=== PATIENT | male | born 1980 | race Caucasian/White ===

== ENCOUNTER 2017-03-15 08:17 | Inpatient (IN) ==
[2017-03-15 08:40] LABS: Bilirubin,Urine Negative (Negative); Blood,Urine Trace (Negative); Clarity,Urine Clear (Clear); Color,Urine Yellow (Yellow); Glucose,Urine (UA) Normal (Normal); Ketones,Urine Negative (Negative); Leukocyte Esterase,Urine Negative (Negative); Nitrite,Urine Negative (Negative); PH,Urine 6.5 pH Units (5.0-8.0); Protein,Urine Negative (Neg-Trace); Specific Gravity,Urine 1.018 (1.010-1.025); Urobilinogen,Urine Normal (Normal)
[2017-03-15 08:43] LABS: Amphetamine Screen,Urine Positive ng/mL (Cutoff=1000); Bacteria,Urine None Seen per hpf (None-Few); Barbiturate Screen,Urine Negative ng/mL (Cutoff=200); Benzodiazepines Screen,Urine Negative ng/mL (Cutoff=200); Cannabinoid Screen,Urine Negative ng/mL (Cutoff = 50); Cocaine Screen,Urine Negative ng/mL (Cutoff= 300); Hyaline Casts,Urine None Seen per lpf (None-Few); Opiate Screen,Urine Negative ng/mL (Cutoff=300); Phencyclidine Screen,Urine Negative ng/mL (Cutoff=25); Squamous Epithelial Cell,Urine Moderate per lpf (None-Few); WBC,Urine 0-3 per hpf (0-3)
[2017-03-15 08:44] LABS: Basophils # 0.1 K/mcL (0.0-0.2); Basophils % 0.9 %; Eosinophils # 0.4 K/mcL (0.0-0.6); Eosinophils % 5.7 %; Hematocrit 45.5 % (37.5-50.1); Hemoglobin 14.2 g/dL (12.9-16.9); Immature Granulocytes % 0.2 % (0-4); Lymphocytes # 3.1 K/mcL (0.6-4.6); Lymphocytes % 46.8 %; Mean Corpuscular HGB Conc 31.2 g/dL (31.6-35.5); Mean Corpuscular Volume 83.3 fL (83.0-100.0); Mean Platelet Volume 8.1 fL (9.4-12.4); Monocytes # 0.5 K/mcL (0.0-1.3); Monocytes % 8.1 %; Neutrophils # 2.5 K/mcL (1.6-8.9); Platelet Count 279 K/mcL (140-400); Red Blood Count 5.46 M/mcL (4.19-5.50); Red Cell Distribution Width 14.6 % (11.5-14.5); Segmented Neutrophils % 38.3 %
[2017-03-15 09:00] LABS: Acetaminophen < 1.0 mcg/mL (10-30); Alanine Aminotransferase 17 Units/L (7-52); Albumin 4.3 g/dL (3.5-5.7); Albumin/Globulin Ratio 1.3 (1.1-2.2); Alkaline Phosphatase 106 Units/L (34-104); Aspartate Amino Transferase 12 Units/L (13-39); BUN/Creatinine Ratio 14 (6-26); Bilirubin,Direct 0.1 mg/dL (0.0-0.2); Bilirubin,Indirect 0.4 mg/dL (0.0-1.2); Bilirubin,Total 0.5 mg/dL (0.3-1.0); Blood Urea Nitrogen 10 mg/dL (6-20); Calcium 9.3 mg/dL (8.6-10.3); Carbon Dioxide 28 mEq/L (23-29); Chloride 105 mEq/L (98-107); Ethanol < 10 mg/dL (0-10); Globulin 3.3 g/dL (2.4-3.5); Glucose 96 mg/dL (70-105); Osmolality,Calculated 285 (280-300); Potassium 3.9 mEq/L (3.5-5.1); Salicylate < 5.0 mg/dL (15.0-30.0); Sodium 138 mEq/L (136-145); Total Protein 7.6 g/dL (6.4-8.9); eGFR For African Americans > 60 (> 60); eGFR For Non-African Americans > 60 (> 60)
[2017-03-15 09:14] LABS: Thyroid Stimulating Hormone 1.047 mcIU/mL (0.340-5.600)
--- NOTE | 2017-03-15 09:41 | Emergency Department Note ---
Disposition Clinical Impression: Medical clearance for psychiatric admission, Acute psychosis, Homicidal ideation Disposition: Admitted As Inpatient Condition: Good Psych HPI - General Chief Complaint: ED Psychiatric Symptoms Stated Complaint: Medical Clearance Time Seen by Provider: 03/15/17 08:22 Source: patient, police Mode of arrival: other Limitations: no limitations Nursing Notes Reviewed: Yes Vital Signs Reviewed: Yes - History of Present Illness HPI Narrative: 36-year-old male presents to the ER in police custody with a court order for psychiatric evaluation. Patient currently has no complaints. He denies suicidal or homicidal ideation. He denies anxiety or depression. He denies auditory or visual hallucinations. He voices no complaints at this time including headaches chest pain or shortness of breath. He is not entirely sure why he is here. He denies any alcohol use. He did use cocaine a few days ago. I reviewed the patient's chart and court order. It appears that he was evaluated and noted to have concern for aggressive behavior. He has been cutting himself on his arms and using the blood to paint the lopez. He reports he has been preaching to people that are not there trying to leave them down the right way. Pt complaint: medical clearance request Onset (ago): unknown Context: recent drug abuse Alleged intoxication: No Associated Psychiatric Symptoms: none Associated symptoms: Reports: denies other symptoms Traumatic symptoms: denies traumatic injury Treatments prior to arrival: psychiatric referral Self harm or harm to others: denies thoughts of harming self/others - Related Data Home Medications Medication Instructions Recorded Confirmed No Known Home Drugs 03/15/17 03/15/17 Allergies Allergy/AdvReac Type Severity Reaction Status Date / Time No Known Allergies Allergy Verified 03/15/17 08:25 All systems ED: reviewed and negative except as stated. Cardiovascular: Denies: chest pain Respiratory: Denies: dyspnea Gastrointestinal: Denies: abdominal pain Neurological: Denies: headache Psychiatric: Denies: anxiety, depression, suicidal thoughts, homicidal thoughts , auditory hallucinations, visual hallucinations Past Medical History - Past Medical History Attestation: Yes The following information was validated with the patient. Source: patient Medical history: Reports: no medical history Psychiatric history: Reports: depression, schizophrenia - Social History Smoking Status: Never smoker Smokeless Tobacco Status: No Alcohol use: Reports: none Drug use: Reports: opiates, methamphetamine, IV Drug Use, prescription drug abuse Physical Exam - General Limitations: no limitations General appearance: alert, in no apparent distress - Head Head exam: atraumatic, normocephalic - Eye Eye exam: Present: normal appearance - ENT ENT exam: normal exam - Neck Neck exam: Present: normal inspection, full ROM - Chest Chest inspection: Present: normal inspection, symmetric chest wall rise - Respiratory Respiratory exam: Present: normal lung sounds bilaterally - Cardiovascular Cardiovascular exam: Present: regular rate, normal rhythm, normal heart sounds - Abdominal Exam Abdominal exam: Present: soft, Non-Tender. Absent: tenderness - Extremities Exam Extremities exam: Present: normal inspection, full ROM - Expanded Upper Extremity Exam Shoulder exam: Present: normal inspection, full ROM Arm exam: Present: normal inspection, full ROM Elbow exam: Present: normal inspection, full ROM Forearm/Wrist exam: Present: normal inspection, full ROM, laceration (There are numerous superficial lacerations of varying ages over the bilateral upper extremities.) Hand exam: Present: normal inspection, full ROM Vascular exam: Normal: radial pulse - Expanded Lower Extremity Exam Hip/Pelvis exam: Present: normal inspection, full ROM Upper leg exam: Present: normal inspection, full ROM Knee exam: Present: normal inspection, full ROM Lower leg exam: Present: normal inspection, full ROM Ankle exam: Present: normal inspection, full ROM Foot/toe exam: Present: normal inspection, full ROM - Psychiatric Psychiatric exam: Present: anxious - Expanded Psychiatric Exam Expanded psych exam: Present: loose associations - Skin Skin exam: Present: warm, dry Course Course Narrative: Patient seen and examined. Abrasions over the upper extremities. Patient has order for psychiatric evaluation. We will get labs for psychiatric clearance. - Reevaluation(s) Reevaluation #1: Patient evaluated by the psychiatric team. They initially did not recommend admission. Attending spoke with on-call psychiatrist who now agrees with admission. Patient is accepted to the psychiatric service. Vital Signs Temperature 97.9 F 03/15/17 08:21 Pulse Rate 105 03/15/17 08:21 Respiratory Rate 16 03/15/17 08:21 Blood Pressure 136/90 03/15/17 08:21 O2 Sat by Pulse Oximetry 100 03/15/17 08:21 Temperature 98.2 F 03/15/17 21:00 Pulse Rate 68 03/15/17 21:00 Respiratory Rate 14 03/15/17 21:00 Blood Pressure 111/66 03/15/17 21:00 O2 Sat by Pulse Oximetry 100 03/15/17 08:21 Oxygen Delivery Oxygen Delivery Room Air Psych - MDM Narrative Medical decision making narrative: 36-year-old male presents to the ER from court order for evaluation. From their description he cuts his arms and uses his blood the pain on the lopez. Also reports of him standing over family members when they wake up and family voicing concern for their safety. Patient medically cleared for psychiatric evaluation. He is admitted to the psychiatric service for further evaluation. - Lab Data Lab results reviewed: Yes I reviewed the patient's lab results. Result diagrams: 03/15/17 08:35 03/15/17 08:35 Lab Results 03/15/17 03/15/17 03/15/17 Range/Units 08:30 08:30 08:35 WBC 6.5 (4.3-11.1) K/mcL RBC 5.46 (4.19-5.50) M/mcL Hgb 14.2 (12.9-16.9) g/dL Hct 45.5 (37.5-50.1) % MCV 83.3 (83.0-100.0) fL MCH 26.0 L (28.0-33.3) pg MCHC 31.2 L (31.6-35.5) g/dL RDW 14.6 H (11.5-14.5) % Plt Count 279 (140-400) K/mcL MPV 8.1 L (9.4-12.4) fL Immature Gran % 0.2 (0-4) % Seg Neutrophils % 38.3 % Lymphocytes % 46.8 % Monocytes % 8.1 % Eosinophils % 5.7 % Basophils % 0.9 % Neutrophils # 2.5 (1.6-8.9) K/mcL Lymphocytes # 3.1 (0.6-4.6) K/mcL Monocytes # 0.5 (0.0-1.3) K/mcL Eosinophils # 0.4 (0.0-0.6) K/mcL Basophils # 0.1 (0.0-0.2) K/mcL Sodium (136-145) mEq/L Potassium (3.5-5.1) mEq/L Chloride (98-107) mEq/L Carbon Dioxide (23-29) mEq/L BUN (6-20) mg/dL Creatinine (0.70-1.30) mg/dL Est GFR ( Amer) (> 60) Est GFR (Non-Af Amer) (> 60) BUN/Creatinine Ratio (6-26) Glucose (70-105) mg/dL Calculated Osmolality (280-300) Calcium (8.6-10.3) mg/dL Total Bilirubin (0.3-1.0) mg/dL Direct Bilirubin (0.0-0.2) mg/dL Indirect Bilirubin (0.0-1.2) mg/dL AST (13-39) Units/L ALT (7-52) Units/L Alkaline Phosphatase (34-104) Units/L Serum Total Protein (6.4-8.9) g/dL Albumin (3.5-5.7) g/dL Globulin (2.4-3.5) g/dL Albumin/Globulin Ratio (1.1-2.2) TSH (0.340-5.600) mcIU/mL Urine Color Yellow (Yellow) Urine Clarity Clear (Clear) Urine pH 6.5 (5.0-8.0) pH Units Ur Specific [place] 1.018 (1.010-1.025) Urine Protein Negative (Neg-Trace) mg/dL Urine Glucose (UA) Normal (Normal) mg/dL Urine Ketones Negative (Negative) mg/dL Urine Blood Trace H (Negative) Urine Nitrite Negative (Negative) Urine Bilirubin Negative (Negative) Urine Urobilinogen Normal (Normal) mg/dL Ur Leukocyte Esterase Negative (Negative) Urine Microscopic RBC 5-15 H (0-3) per hpf Urine Microscopic WBC 0-3 (0-3) per hpf Ur Squamous Epith Cells Moderate H (None-Few) per lpf Urine Bacteria None Seen (None-Few) per hpf Hyaline Casts None Seen (None-Few) per lpf Salicylates (15.0-30.0) mg/dL Urine Opiates Screen Negative (Eqdqlx=573) ng/mL Acetaminophen (10-30) mcg/mL Ur Barbiturates Screen Negative (Jdsnvs=026) ng/mL Ur Phencyclidine Scrn Negative (Cutoff=25) ng/mL Ur Amphetamines Screen Positive H (Tthbfs=3078) ng/mL U Benzodiazepines Scrn Negative (Gixycw=222) ng/mL Urine Cocaine Screen Negative (Cutoff= 300) ng/mL U Marijuana (THC) Screen Negative (Cutoff = 50) ng/mL Ethyl Alcohol (0-10) mg/dL 03/15/17 Range/Units 08:35 WBC (4.3-11.1) K/mcL RBC (4.19-5.50) M/mcL Hgb (12.9-16.9) g/dL Hct (37.5-50.1) % MCV (83.0-100.0) fL MCH (28.0-33.3) pg MCHC (31.6-35.5) g/dL RDW (11.5-14.5) % Plt Count (140-400) K/mcL MPV (9.4-12.4) fL Immature Gran % (0-4) % Seg Neutrophils % % Lymphocytes % % Monocytes % % Eosinophils % % Basophils % % Neutrophils # (1.6-8.9) K/mcL Lymphocytes # (0.6-4.6) K/mcL Monocytes # (0.0-1.3) K/mcL Eosinophils # (0.0-0.6) K/mcL Basophils # (0.0-0.2) K/mcL Sodium 138 (136-145) mEq/L Potassium 3.9 (3.5-5.1) mEq/L Chloride 105 (98-107) mEq/L Carbon Dioxide 28 (23-29) mEq/L BUN 10 (6-20) mg/dL Creatinine 0.69 L (0.70-1.30) mg/dL Est GFR ( Amer) > 60 (> 60) Est GFR (Non-Af Amer) > 60 (> 60) BUN/Creatinine Ratio 14 (6-26) Glucose 96 (70-105) mg/dL Calculated Osmolality 285 (280-300) Calcium 9.3 (8.6-10.3) mg/dL Total Bilirubin 0.5 (0.3-1.0) mg/dL Direct Bilirubin 0.1 (0.0-0.2) mg/dL Indirect Bilirubin 0.4 (0.0-1.2) mg/dL AST 12 L (13-39) Units/L ALT 17 (7-52) Units/L Alkaline Phosphatase 106 H (34-104) Units/L Serum Total Protein 7.6 (6.4-8.9) g/dL Albumin 4.3 (3.5-5.7) g/dL Globulin 3.3 (2.4-3.5) g/dL Albumin/Globulin Ratio 1.3 (1.1-2.2) TSH 1.047 (0.340-5.600) mcIU/mL Urine Color (Yellow) Urine Clarity (Clear) Urine pH (5.0-8.0) pH Units Ur Specific [place] (1.010-1.025) Urine Protein (Neg-Trace) mg/dL Urine Glucose (UA) (Normal) mg/dL Urine Ketones (Negative) mg/dL Urine Blood (Negative) Urine Nitrite (Negative) Urine Bilirubin (Negative) Urine Urobilinogen (Normal) mg/dL Ur Leukocyte Esterase (Negative) Urine Microscopic RBC (0-3) per hpf Urine Microscopic WBC (0-3) per hpf Ur Squamous Epith Cells (None-Few) per lpf Urine Bacteria (None-Few) per hpf Hyaline Casts (None-Few) per lpf Salicylates < 5.0 L (15.0-30.0) mg/dL Urine Opiates Screen (Fdufvb=690) ng/mL Acetaminophen < 1.0 L (10-30) mcg/mL Ur Barbiturates Screen (Tqpltl=437) ng/mL Ur Phencyclidine Scrn (Cutoff=25) ng/mL Ur Amphetamines Screen (Zphpmf=5252) ng/mL U Benzodiazepines Scrn (Vodyls=907) ng/mL Urine Cocaine Screen (Cutoff= 300) ng/mL U Marijuana (THC) Screen (Cutoff = 50) ng/mL Ethyl Alcohol < 10 (0-10) mg/dL Psychiatric Medical Clearance - Medical Clearance Checklist Medical History: Medical clearance for psychiatric admission (Acute) Acute psychosis (Acute) Homicidal ideation (Acute) Acute lumbar back pain (Inactive) Bilateral swelling of feet (Inactive) Chronic schizophrenia (Inactive) Drug overdose (Inactive) Drug-induced psychotic disorder (Inactive) Pre-hypertension (Inactive) Urethritis (Inactive) No Social History Section defined Current Vitals: Last Vital Signs Temp 98.2 F 03/15/17 21:00 Pulse 68 03/15/17 21:00 Resp 14 03/15/17 21:00 BP 111/66 03/15/17 21:00 Pulse Ox 100 03/15/17 08:21 Psychiatric Lab Panel: Drug Levels and Toxicity 03/15/17 03/15/17 08:30 08:35 Urine Opiates Screen Negative Acetaminophen < 1.0 L Ur Barbiturates Screen Negative Ur Phencyclidine Scrn Negative Ur Amphetamines Screen Positive H U Benzodiazepines Scrn Negative Urine Cocaine Screen Negative U Marijuana (THC) Screen Negative Ethyl Alcohol < 10 Abnormal Labs: Abnormal lab results MCH 26.0 pg (28.0-33.3) L 03/15/17 08:35 MCHC 31.2 g/dL (31.6-35.5) L 03/15/17 08:35 RDW 14.6 % (11.5-14.5) H 03/15/17 08:35 MPV 8.1 fL (9.4-12.4) L 03/15/17 08:35 Creatinine 0.69 mg/dL (0.70-1.30) L 03/15/17 08:35 AST 12 Units/L (13-39) L 03/15/17 08:35 Alkaline Phosphatase 106 Units/L (34-104) H 03/15/17 08:35 Urine Blood Trace (Negative) H 03/15/17 08:30 Urine Microscopic RBC 5-15 per hpf (0-3) H 03/15/17 08:30 Ur Squamous Epith Cells Moderate per lpf (None-Few) H 03/15/17 08:30 Salicylates < 5.0 mg/dL (15.0-30.0) L 03/15/17 08:35 Acetaminophen < 1.0 mcg/mL (10-30) L 03/15/17 08:35 Ur Amphetamines Screen Positive ng/mL (Etjxdb=5965) H 03/15/17 08:30 Statement of Medical Clearance: I have evaluated the patient, reviewed diagnostic information, and certify that the patient's medical condition is sufficiently stable that transfer to the psychiatric unit does not pose a significant risk of deterioration. Attestation Statement - Attestation Attestation: I examined this patient and my medical decision-making was reviewed with the Resident Physician, Dr. Mckinley. I agree with the documented findings, disposition and treatment plan as described except to the extent set forth below. Patient is a 36-year-old white male who sent us with a court order for medical clearance for further psychiatric evaluation. Patient currently brought for evaluation and it was reported that he is cutting himself numerous times on his arms and taking the blood and paint the lopez. Patient was also found preaching to people who are not present in his room. I agree with patient's physical exam findings as documented. Vital signs are stable he is not agitated or in any distress. Patient denies any complaints Lab evaluation was obtained as well as alcohol and drug levels. Patient does have positive methamphetamine in the system. Patient has been medically cleared for further psychiatric evaluation pending one a consult. Spoke with the psychiatrist personally, Dr. Rizvi regarding patient's court- ordered affidavit and comments of homicidal and suicidal ideation. Patient will be admitted for further evaluation.
[2017-03-15] MEDS ORDERED: Haloperidol Lactate 5 MG/ML VIAL IM ONE (14:58)
[2017-03-15] MEDS ORDERED: hydrOXYzine pamoate 25 MG CAPSULE PO PRN (17:48)
[2017-03-15] MEDS ORDERED: *HR* LORazepam 2 MG/ML VIAL IM PRN (17:48)
[2017-03-15] MEDS ORDERED: Haloperidol Lactate 5 MG/ML VIAL IM PRN (17:48)
[2017-03-15] MEDS ORDERED: Mag Hydrox/Al Hydrox/Simeth 30 ML UDC PO PRN (17:48)
[2017-03-15] MEDS ORDERED: Acetaminophen 325 MG TABLET PO PRN (17:48)
[2017-03-15] MEDS ORDERED: *HR* LORazepam 1 MG TABLET PO PRN (17:48)
[2017-03-15] MEDS ORDERED: MOM Conc 10 ML UD.LIQ PO PRN (17:48)
--- NOTE | 2017-03-16 15:03 | Psychiatry History & Physical ---
Date of Encounter: 03/16/17 Time of Encounter: 14:45 History of Present Illness Patient Stated Chief Complaint: "I have no idea why I'm here. I was told it was for medical testing" Medicare Admission Attestation: For traditional Medicare patients the provided hospital inpatient services are reasonable and necessary and in the case of services not specified as inpatient -only under 42 CFR 419.22 (n), that they are appropriately provided as inpatient services in accordance 42 CFR 412.3. For Critical Access Hospital the patient may reasonably be expected to be discharged or transferred to a hospital within 96 hours after admission to the Critical Access Hospital. Admitted From: Emergency Dept Plans for Post Hospital Care: Home History of Present Illness: Mr. Adan is a 36 year old male who tells me he has no idea why he is at the hospital. I explained to them the situation of why he was here. He was unwilling to come out of his room to talk to me. He stated that I could talk to him right there. He was laying in bed with the blankets pulled over him and did not want to leave the room. He denies threatening anybody. He told me what he said to his family was "you guys keep doing things that you do, that is what makes people flip out and kill people". He does not see or understand that that could be seen and interrupted as s a threat. I asked him about the reports of him being treated for mental health issues when he was in [place]. He stated "a bunch of shit happened in [place] where I was further expanding my mind. When I came home, my family didn't agree with it". He denies any auditory or visual hallucinations. He told me that he slept fine last night. I tried to get further information from him and he was not willing to talk to me. He just asks if he can leave. I explained to him again that he was on a 72 hour hold. That he needed to be monitored and we needed to gather information from him as well as get collateral information from others to help him. He denies that he is a danger to himself or anybody else. He denies signs and symptoms of psychosis or any mental health issues. (See ED Emergent Psychiatric Evaluation for further details. 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 He denies having it. ) Family psychiatric history: Unknown Family History of Suicide: Unknown - Social History Smoking Status: Never smoker Smokeless Tobacco Status: No Alcohol use: none Drug use: opiates, methamphetamine, IV Drug Use, prescription drug abuse Occupational status: unemployed Current living situation: Home, With Family Activity Level: Independent ambulation Recent Out of Country Travel Within the Last 8 Weeks: No Exposure or Possible Exposure to Illness During Travel: No Medications & Allergies No Known Home Drugs 03/15/17 [History] 3 Allergy/AdvReac Type Severity Reaction Status Date / Time No Known Allergies Allergy Verified 03/15/17 08:25 Mental Status Exam Patient orientation: Yes Person, Yes Place, Yes Circumstance (Does not understand the circumstances) Level of alertness: Sedated Patient appearance: Disheveled Additional observations: He will not come out of his room to talk Behavior: anxious, restless, uncooperative, guarded, distractible Psychomotor activity: Agitated Eye contact: Fleeting Contact Mood description: Anxious Affect description: congruent with mood Speech pattern: Normal rate, Normal rhythm, Normal tone Speech volume: Normal Thought process: Circumstantial, Evasive, [place] Thought content: Yes Homicidal ideation (denies), Yes Paranoid delusion ( regarding that his family is out to get him; not trying to help him.) Attention span: Capable of Focused Attention, Unable to Sustain Attention ( struggles) Memory description: Grossly Intact Patient reliability: Not Reliable Historian Intelligence estimate: Average Judgment: Poor Insight: Minimal Exam - HEENT Head exam IM: Present: atraumatic Results - Vital Signs Vital signs: Temp Pulse Resp BP Pulse Ox 98.2 F 94 16 107/74 100 03/16/17 09:00 03/16/17 09:00 03/16/17 09:00 03/16/17 09:00 03/15/17 08:21 - Labs Labs: Laboratory Last Values WBC 6.5 K/mcL (4.3-11.1) 03/15/17 08:35 RBC 5.46 M/mcL (4.19-5.50) 03/15/17 08:35 Hgb 14.2 g/dL (12.9-16.9) 03/15/17 08:35 Hct 45.5 % (37.5-50.1) 03/15/17 08:35 MCV 83.3 fL (83.0-100.0) 03/15/17 08:35 MCH 26.0 pg (28.0-33.3) L 03/15/17 08:35 MCHC 31.2 g/dL (31.6-35.5) L 03/15/17 08:35 RDW 14.6 % (11.5-14.5) H 03/15/17 08:35 Plt Count 279 K/mcL (140-400) 03/15/17 08:35 MPV 8.1 fL (9.4-12.4) L 03/15/17 08:35 Immature Gran % 0.2 % (0-4) 03/15/17 08:35 Seg Neutrophils % 38.3 % 03/15/17 08:35 Lymphocytes % 46.8 % 03/15/17 08:35 Monocytes % 8.1 % 03/15/17 08:35 Eosinophils % 5.7 % 03/15/17 08:35 Basophils % 0.9 % 03/15/17 08:35 Neutrophils # 2.5 K/mcL (1.6-8.9) 03/15/17 08:35 Lymphocytes # 3.1 K/mcL (0.6-4.6) 03/15/17 08:35 Monocytes # 0.5 K/mcL (0.0-1.3) 03/15/17 08:35 Eosinophils # 0.4 K/mcL (0.0-0.6) 03/15/17 08:35 Basophils # 0.1 K/mcL (0.0-0.2) 03/15/17 08:35 Sodium 138 mEq/L (136-145) 03/15/17 08:35 Potassium 3.9 mEq/L (3.5-5.1) 03/15/17 08:35 Chloride 105 mEq/L (98-107) 03/15/17 08:35 Carbon Dioxide 28 mEq/L (23-29) 03/15/17 08:35 BUN 10 mg/dL (6-20) 03/15/17 08:35 Creatinine 0.69 mg/dL (0.70-1.30) L 02/08/18 08:35 Est GFR ( Amer) > 60 (> 60) 03/15/17 08:35 Est GFR (Non-Af Amer) > 60 (> 60) 03/15/17 08:35 BUN/Creatinine Ratio 14 (6-26) 03/15/17 08:35 Glucose 96 mg/dL (70-105) 03/15/17 08:35 Calculated Osmolality 285 (280-300) 03/15/17 08:35 Calcium 9.3 mg/dL (8.6-10.3) 03/15/17 08:35 Total Bilirubin 0.5 mg/dL (0.3-1.0) 03/15/17 08:35 Direct Bilirubin 0.1 mg/dL (0.0-0.2) 03/15/17 08:35 Indirect Bilirubin 0.4 mg/dL (0.0-1.2) 03/15/17 08:35 AST 12 Units/L (13-39) L 03/15/17 08:35 ALT 17 Units/L (7-52) 03/15/17 08:35 Alkaline Phosphatase 106 Units/L (34-104) H 03/15/17 08:35 Serum Total Protein 7.6 g/dL (6.4-8.9) 03/15/17 08:35 Albumin 4.3 g/dL (3.5-5.7) 03/15/17 08:35 Globulin 3.3 g/dL (2.4-3.5) 03/15/17 08:35 Albumin/Globulin Ratio 1.3 (1.1-2.2) 03/15/17 08:35 TSH 1.047 mcIU/mL (0.340-5.600) 03/15/17 08:35 Urine Color Yellow (Yellow) 03/15/17 08:30 Urine Clarity Clear (Clear) 03/15/17 08:30 Urine pH 6.5 pH Units (5.0-8.0) 03/15/17 08:30 Ur Specific [place] 1.018 (1.010-1.025) 03/15/17 08:30 Urine Protein Negative mg/dL (Neg-Trace) 03/15/17 08:30 Urine Glucose (UA) Normal mg/dL (Normal) 03/15/17 08:30 Urine Ketones Negative mg/dL (Negative) 03/15/17 08:30 Urine Blood Trace (Negative) H 03/15/17 08:30 Urine Nitrite Negative (Negative) 03/15/17 08:30 Urine Bilirubin Negative (Negative) 03/15/17 08:30 Urine Urobilinogen Normal mg/dL (Normal) 03/15/17 08:30 Ur Leukocyte Esterase Negative (Negative) 03/15/17 08:30 Urine Microscopic RBC 5-15 per hpf (0-3) H 03/15/17 08:30 Urine Microscopic WBC 0-3 per hpf (0-3) 03/15/17 08:30 Ur Squamous Epith Cells Moderate per lpf (None-Few) H 03/15/17 08:30 Urine Bacteria None Seen per hpf (None-Few) 03/15/17 08:30 Hyaline Casts None Seen per lpf (None-Few) 03/15/17 08:30 Salicylates < 5.0 mg/dL (15.0-30.0) L 03/15/17 08:35 Urine Opiates Screen Negative ng/mL (Cvbwgf=922) 03/15/17 08:30 Acetaminophen < 1.0 mcg/mL (10-30) L 03/15/17 08:35 Ur Barbiturates Screen Negative ng/mL (Wtjjyy=998) 03/15/17 08:30 Ur Phencyclidine Scrn Negative ng/mL (Cutoff=25) 03/15/17 08:30 Ur Amphetamines Screen Positive ng/mL (Zmwsvo=3222) H 03/15/17 08:30 U Benzodiazepines Scrn Negative ng/mL (Gdsbvm=921) 03/15/17 08:30 Urine Cocaine Screen Negative ng/mL (Cutoff= 300) 03/15/17 08:30 U Marijuana (THC) Screen Negative ng/mL (Cutoff = 50) 03/15/17 08:30 Ethyl Alcohol < 10 mg/dL (0-10) 03/15/17 08:35 - Impressions Patient is uncooperative and denies any mental health issues. He does not want to talk me. He acknowledges using meth and other drugs. It is questionable whether the mood and thought issues may be drug-related, as he is positive for methamphetamine, or if he has a true underlying schizophrenia/psychosis which he has been diagnosed with previously. He has made cold threats against his family that they called the police, afraid that he was a danger to them. He is unwilling to take medications or seek treatment for mental health or substance abuse issues. He believes that he is at the hospital for lab "testing" which he thinks is a paternity testing. He does not understand nor agree that he is here on a 72 hour hold for monitoring and evaluation of mental health issues and DTO. Further evaluation and monitoring is needed as well as contact and interview with the family that he made the perceived threats toward. Assessment and Plan (1) Psychosis Current visit: Yes Status: Acute Plan: Admit inpatient for safety and stabilization, Close observation, Suicide Precautions per unit protocol, Group Therapy, Monitor sleep Risks, benefits, side effects, alternatives discussed w/pt: Yes Patient agreeable to treatment : No (72 hour hold) Plans for Post Hospital Care: Home Estimated Length of Stay (Days): 5
--- NOTE | 2017-03-17 12:40 | Psychiatry Progress Note ---
Date of Encounter: 03/17/17 Time of Encounter: 12:00 Subjective Interval history: I went to talk to the patient while he was out eating lunch. I asked him if he would come down to my office to talk after he finished eating. He was agreeable. He came to my office and I asked him how he was. He stated "I am alright. I am just frustrated to still be here". When I tried to talk to him about the situation and to gather more information, he told me "people mistake me and what I think. I am just misunderstood" He talks further about " Facebook posts are just that, posts". I explained to him that there was concern over the statement made and reiterated the statement about his family ' not waking up'. He states that "my mom and them do not understand me. They just want me in here to get welfare to get them money". He states that he lives with his family spends most of his time in the room. He does not have a job. He states he would like to get one but can't because he does not have a car. When I asked him about his mental health, he denies auditory/visual hallucinations, telepathy and mind reading. He denies paranoia that the [facility], [facility] or any government agencies are out to get him. "Just my family" I talked to him about his drug use. He says he uses meth every couple days and then "I balance it out with something else". When asked what he is talking about, he tells me, that he will use heroin to bring himself down. He brings up the fact again about getting the lab testing for the paternity. I explained to him that that is not why he was here. He stated "this (paternity testing/lab ?) has been going on for a couple months". I explained to him again that he is here in a 72 hour hold for potential threat to others. He said "I am not talking to you anymore" and he got up and walked out of the room. Objective: Exam Patient orientation: Yes Person, Yes Place Level of alertness: Alert Patient appearance: Unkempt Behavior: uncooperative, guarded Psychomotor activity: Normal Eye contact: Fleeting Contact Mood description: Anxious Affect description: congruent with mood Speech pattern: Normal rate, Normal rhythm, Normal tone Speech volume: Normal Thought process: Circumstantial, Evasive Thought content: Yes Suicidal ideation (denies), Yes Homicidal ideation (denies) , Yes Paranoid delusion Judgment: Poor Insight: Minimal Results - Vital Signs Vital Signs: Temp Pulse Resp BP Pulse Ox 98 F 85 16 115/77 100 03/17/17 09:00 03/17/17 09:00 03/17/17 09:00 03/17/17 09:00 03/15/17 08:21 Assessment and Plan (1) Psychosis Current visit: Yes Status: Acute Plan: Continue hospitalization, Close observation, Suicide Precautions per unit protocol, Encourage participation in unit milieu, Group Therapy, Monitor sleep Additional Plan: commissary worker to contact family for interview to gather further information and discuss threat and placement/housing issues Risks, benefits, side effects, alternatives discussed w/pt: Yes Patient agreeable to treatment: No (72 hour hold) Consult Discharge Plan - Plan Referrals: NONE,PCP [Primary Care Provider] -
[2017-03-17] MEDS: traZODone 50 MG TABLET PO PRN (20:22)
--- NOTE | 2017-03-18 13:30 | Psychiatry Progress Note ---
Date of Encounter: 03/18/17 Time of Encounter: 10:20 Subjective Interval history: Patient seen this morning and discussed during rounds and multidiscplinary treatment team. He was calm , cooperative and well related. There were no reported incident overnight. He remained slightly disorganized and delusional. He mentioned he was brought to the hospital to have blood work done to see if he is the father of a girl got . He mentioned everything was fine with the blood work but his family wanted him evaluated to make sure "Im OK'. Patient 's insight remains poor and does not believe he needs medications hence his continuous refusal to take medications. There were no reported incident or behavioral issues over night. Patient remains delusional and disorganized with poor insight and limited impulse control. He remains a risk to self and others hence will continue to benefit from inpatient stabilization. He will need to be probated for medication over objection if he continues to refuse medications. m. Objective: Exam Patient orientation: Yes Person, Yes Time, Yes Place Level of alertness: Alert Patient appearance: Appropriate, Well Groomed Behavior: calm, cooperative Psychomotor activity: Normal Eye contact: Maintains Eye Contact Mood description: Anxious Affect description: congruent with mood, full range Speech pattern: Normal rate, Normal rhythm, Normal tone Speech volume: Normal Thought process: Linear, Goal Oriented Thought content: No Suicidal ideation, No Homicidal ideation, No Overt delusions , Yes Paranoid delusion, Yes Adventist delusion Perceptual disturbances: No Auditory hallucinations, No Visual hallucinations Judgment: Poor Insight: None Results - Vital Signs Vital Signs: Temp Pulse Resp BP Pulse Ox 98.4 F 81 18 125/78 100 03/18/17 08:37 03/18/17 08:37 03/18/17 08:37 03/18/17 08:37 03/15/17 08:21 Consult Discharge Plan - Plan Referrals: NONE,PCP [Primary Care Provider] -
[2017-03-18] MEDS: traZODone 50 MG TABLET PO PRN (21:25)
--- NOTE | 2017-03-19 15:00 | Psychiatry Progress Note ---
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 He reports that he would like to communicate better with his mother. The patient says he is awake and he is an awaken sikh and that he is also in the medications when told that some of these things were improbable he said no and says there was a big misunderstanding. The patient has been cautioned not to cut his arms not to use methamphetamine not to use heroin. Review of Systems Constitutional: Denies: fever, chills, weakness, weight change Gastrointestinal: Denies: abdominal pain, nausea, vomiting, diarrhea, constipation Musculoskeletal: Denies: joint swelling, joint pain Neurological: Denies: headache, weakness, numbness, memory loss Results - Vital Signs Vital Signs: Temp Pulse Resp BP Pulse Ox 99.8 F H 103 16 129/86 100 03/19/17 10:48 03/19/17 10:48 03/19/17 10:48 03/19/17 10:48 03/15/17 08:21 - Drug Levels and Toxicology Drug Levels and Toxicology: methamphetamine Assessment and Plan (1) Psychosis Current visit: Yes Status: Acute Plan: Continue hospitalization, Close observation, Encourage participation in unit milieu Risks, benefits, side effects, alternatives discussed w/pt: Yes Patient agreeable to treatment: No (72 hour hold) Qualifiers: Qualified Code(s): F29 - Unspecified psychosis not due to a substance or known physiological condition (2) Other stimulant abuse with stimulant-induced mood disorder Current visit: Yes Status: Acute Plan: Close observation, Monitor sleep Risks, benefits, side effects, alternatives discussed w/pt: Yes Patient agreeable to treatment: Yes (3) Court decision Current visit: Yes Status: Suspected Plan: Close observation Additional Plan: Patient has been on court order to evaluate for dangerousness. On is not dangerous to others there has been some concern he might try to cut himself. Loose disorganized in conversation Risks, benefits, side effects, alternatives discussed w/pt: Yes Patient agreeable to treatment: Yes Consult Discharge Plan - Plan Referrals: NONE,PCP [Primary Care Provider] -
[2017-03-19] MEDS: OLANZapine 5 MG TAB.RAPDIS PO SCH (18:08)
[2017-03-19] MEDS: traZODone 50 MG TABLET PO PRN (20:55)
--- NOTE | 2017-03-20 12:40 | Psychiatry Progress Note ---
Date of Encounter: 03/20/17 Time of Encounter: 12:30 Subjective Interval history: The patient has been placed on involuntary hold. He has been told that there was would a court hearing to determine his need to remain in the hospital. Objective: Exam Patient orientation: Yes Person, Yes Time, Yes Place Level of alertness: Alert Patient appearance: Appropriate Behavior: nervous Psychomotor activity: Slowed Eye contact: Maintains Eye Contact Mood description: Euthymic/stable Affect description: congruent with mood Speech pattern: Normal rate Speech volume: Normal Thought process: Loose Associations Thought content: Yes Ideas of reference, Yes Judaism delusion Perceptual disturbances: Yes Reacting to internal stimuli Judgment: Limited Insight: Minimal Results - Vital Signs Vital Signs: Temp Pulse Resp BP Pulse Ox 98.5 F 77 18 110/66 100 03/20/17 09:00 03/20/17 09:00 03/20/17 09:00 03/20/17 09:00 03/15/17 08:21 Assessment and Plan (1) Psychosis Current visit: Yes Status: Acute Plan: Continue hospitalization, Close observation, Suicide Precautions per unit protocol Risks, benefits, side effects, alternatives discussed w/pt: Yes Patient agreeable to treatment: No (72 hour hold) Qualifiers: Psychosis type: unspecified psychosis type Qualified Code(s): F29 - Unspecified psychosis not due to a substance or known physiological condition (2) Other stimulant abuse with stimulant-induced mood disorder Current visit: Yes Status: Acute Plan: Continue hospitalization, Close observation, Monitor sleep Risks, benefits, side effects, alternatives discussed w/pt: Yes Patient agreeable to treatment: Yes (3) Court decision Current visit: Yes Status: Suspected Plan: Continue hospitalization, Close observation Risks, benefits, side effects, alternatives discussed w/pt: Yes Patient agreeable to treatment: Yes Consult Discharge Plan - Plan Referrals: NONE,PCP [Primary Care Provider] -
[2017-03-20] MEDS: OLANZapine 5 MG TAB.RAPDIS PO SCH (18:18)
[2017-03-20] MEDS: traZODone 50 MG TABLET PO PRN (21:22)
--- NOTE | 2017-03-21 11:34 | Psychiatry Progress Note ---
Date of Encounter: 03/21/17 Time of Encounter: 11:30 Subjective Interval history: Patient identifies himself as a Wiccan. He says the wings and staff are a Wiccan sign. 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 he says that he will stop using meth, he hopes to get a job with his brother at [employer]. He denies paranoia. He says his religions is everything. "Even Christianiatity is no Jew" The awakening is thought is from the god Thoth. (clagging, and non-sequetours) Review of Systems Psychiatric: Reports: anxiety Objective: Exam Patient orientation: Yes Person, Yes Time, Yes Place Level of alertness: Alert Patient appearance: Well Groomed, Thin Behavior: cooperative, talkative Psychomotor activity: Normal Eye contact: Maintains Eye Contact Mood description: Anxious Affect description: congruent with mood Speech pattern: Disorganized, Rambling, Other (clanging, ) Speech volume: Normal Thought process: Loose Associations, Tangential, Perseveration Thought content: Yes Zoroastrian delusion, Yes Obsessive thoughts Judgment: Limited Insight: None Results - Vital Signs Vital Signs: Temp Pulse Resp BP Pulse Ox 99 F 111 16 116/80 100 03/20/17 21:00 03/20/17 21:00 03/20/17 21:00 03/20/17 21:00 03/15/17 08:21 Assessment and Plan (1) Psychosis Current visit: Yes Status: Acute Plan: Continue hospitalization, Suicide Precautions per unit protocol, Monitor appetite Risks, benefits, side effects, alternatives discussed w/pt: Yes Patient agreeable to treatment: No (involuntary hospitalization) Qualifiers: Psychosis type: unspecified psychosis type Qualified Code(s): F29 - Unspecified psychosis not due to a substance or known physiological condition (2) Other stimulant abuse with stimulant-induced mood disorder Current visit: Yes Status: Acute Plan: Other (abstince) Risks, benefits, side effects, alternatives discussed w /pt: Yes Patient agreeable to treatment: Yes (3) Court decision Current visit: Yes Status: Suspected Plan: Other (will have a court hearing) Risks, benefits, side effects, alternatives discussed w/pt: Yes Patient agreeable to treatment: Yes Consult Discharge Plan - Plan Referrals: NONE,PCP [Primary Care Provider] -
[2017-03-21] MEDS: traZODone 50 MG TABLET PO PRN (20:34)
[2017-03-21] MEDS: OLANZapine 10 MG TAB.RAPDIS PO SCH (20:34)
--- NOTE | 2017-03-22 15:05 | Psychiatry Progress Note ---
Date of Encounter: 03/22/17 Time of Encounter: 15:00 Subjective Interval history: Patient has expressed some delusional ideas such as being friends with Mikki Benito and with the dog when asked about this he says that he is friends with them from concerts that they do not communicate with him directly. The patient slept 7.5 hours last night. When asked he he said that he was on the right doses approximately one take it at a higher dose. The patient reports that in the past he took Zyprexa for a week and then stopped it and never took. He says that he needs counseling to talk to his mother and so she can understand him so they will come back in the hospital. He did not think he needed AA or NA when asked about his plans for sobriety he said he take it 1 day time. Later in the hallway the patient said I need to get here or something like that and set of ICU on the street I am going to be [facility] to me the examiner. This appeared to be over his concerns about being released from the hospital. Patient is under an involuntary hospitalization order which we want to continue as he continues to show significant thought disorder. Review of Systems Psychiatric: Reports: anxiety Objective: Exam Patient orientation: Yes Person, Yes Time, Yes Place Level of alertness: Alert Patient appearance: Appropriate, Thin Behavior: hostile Psychomotor activity: Slowed Eye contact: Maintains Eye Contact Mood description: Labile Affect description: congruent with mood Speech pattern: Disorganized Speech volume: Normal Thought process: Circumstantial Thought content: Yes Ideas of reference, Yes Paranoid delusion, Yes Worship delusion Judgment: Limited Insight: None Results - Vital Signs Vital Signs: Temp Pulse Resp BP Pulse Ox 97.8 F 109 18 138/82 100 03/22/17 09:00 03/22/17 09:00 03/22/17 09:00 03/22/17 09:00 03/15/17 08:21 Assessment and Plan (1) Psychosis Current visit: Yes Status: Acute Plan: Continue hospitalization, Close observation Risks, benefits, side effects, alternatives discussed w/pt: Yes (he did not want to change dose of Zyprexa) Patient agreeable to treatment: No (involuntary hospitalization) Qualifiers: Psychosis type: unspecified psychosis type Qualified Code(s): F29 - Unspecified psychosis not due to a substance or known physiological condition (2) Other stimulant abuse with stimulant-induced mood disorder Current visit: Yes Status: Acute Plan: Continue hospitalization, Suicide Precautions per unit protocol, Encourage participation in unit milieu Risks, benefits, side effects, alternatives discussed w/pt: Yes Patient agreeable to treatment: Yes (3) Court decision Current visit: Yes Status: Suspected Plan: Continue hospitalization, Close observation Risks, benefits, side effects, alternatives discussed w/pt: Yes Patient agreeable to treatment: No (4) Non-compliant behavior Current visit: Yes Status: Acute Plan: Continue hospitalization, Close observation, Encourage participation in unit milieu Risks, benefits, side effects, alternatives discussed w/pt: Yes Patient agreeable to treatment: No Consult Discharge Plan - Plan Referrals: NONE,PCP [Primary Care Provider] -
[2017-03-22] MEDS: OLANZapine 10 MG TAB.RAPDIS PO SCH (22:38)
--- NOTE | 2017-03-23 10:58 | Psychiatry Progress Note ---
Date of Encounter: 03/23/17 Time of Encounter: 11:00 Subjective Interval history: Patient has been here. he has reqeusted to leave. He was told that this is court matter. If he were to leave today, he would try to get his job back. he says he would take his medications. He would drink alcohol. he would not smoke. he says he would try to do better with drugs. He would continue with his confucianist. He is not planning on giving it up. he has no side efects to meds. Review of Systems Psychiatric: Reports: anxiety Objective: Exam Patient orientation: Yes Person, Yes Time, Yes Place Level of alertness: Alert Patient appearance: Disheveled, Thin Behavior: calm Psychomotor activity: Normal Eye contact: Maintains Eye Contact Mood description: Anxious Affect description: congruent with mood Speech pattern: Normal rate, Normal rhythm Speech volume: Normal Thought process: Tangential Thought content: Yes Sabianist delusion Judgment: Fair Insight: Minimal Results - Vital Signs Vital Signs: Temp Pulse Resp BP Pulse Ox 98.4 F 88 16 118/80 100 03/23/17 09:00 03/23/17 09:00 03/23/17 09:00 03/23/17 09:00 03/15/17 08:21 Assessment and Plan (1) Psychosis Current visit: Yes Status: Acute Plan: Continue hospitalization, Close observation, Monitor appetite Risks, benefits, side effects, alternatives discussed w/pt: Yes (he did not want to change dose of Zyprexa) Patient agreeable to treatment: No (involuntary hospitalization) Qualifiers: Psychosis type: unspecified psychosis type Qualified Code(s): F29 - Unspecified psychosis not due to a substance or known physiological condition (2) Other stimulant abuse with stimulant-induced mood disorder Current visit: Yes Status: Chronic Plan: Suicide Precautions per unit protocol, Monitor appetite Risks, benefits , side effects, alternatives discussed w/pt: Yes Patient agreeable to treatment: Yes (3) Court decision Current visit: Yes Status: Suspected Plan: Continue hospitalization, Encourage participation in unit milieu Additional Plan: ccourt hearing Risks, benefits, side effects, alternatives discussed w/pt: Yes Patient agreeable to treatment: No (4) Non-compliant behavior Current visit: Yes Status: Acute Plan: Family/Supportive other meeting Risks, benefits, side effects, alternatives discussed w/pt: Yes Patient agreeable to treatment: No Consult Discharge Plan - Plan Referrals: [facility] [Outside] - 04/04/17 9:00 am (The above appointment is with Naomy Iraheta for primary health care and medication management services. Your needs for Vivitrol will be assessed and treated as indicated as well. Please arrive 15 minutes early for your new patient appointment, and bring the following items with you: insurance card (if you do not have insurance bring proof of income to apply for the sliding fee scale), photo ID, and any medication you take in the original bottles. If you are unable to bring these items, your appointment will be rescheduled. If you are unable to keep this appointment, 24 hour business notice of cancellation is expected. If you miss your new patient appointment, you cannot be re-scheduled in this practice for 3 months. This practice does not prescribe narcotics or see [facility] benefit recipients. ) [facility] (The above appointment is with . When you come to your first appointment, you will be completing paperwork, meeting with a counselor, and developing a treatment plan. You will receive follow- up appointments for on-going services, which could include community support, mental health and substance abuse counseling, groups/partial hospitalization programming and medication assisted treatment. Please note, you will receive a new patient packet in the mail. Please complete that to the best of your ability and bring it with you to your first appointment. You will also need to bring the following to your first appointment as well: 1) proof of household income (two consecutive pay stubs, social security award letter, bank statement , statement letter from [facility], child support statement, IRS 1040 or W2 form, or a statement from the person who financially supports you stating they help provide for your basic needs), 2) proof of residency (drivers license, a piece of mail showing your address, a statement from person you live with verifying you live at their address), 3) your social security card, 4) photo ID, 5) your insurance card (if you have commercial insurance you must call to obtain a prior authorization number before you arrive to your first appointment) and 6) if you do not have insurance but have applied for Medicaid, please bring verification you have applied. The above appointment(s) reflects first availability. You may contact the office regularly to check for cancellations that may allow you to be seen sooner.)
[2017-03-23] MEDS: traZODone 50 MG TABLET PO PRN (21:57)
[2017-03-23] MEDS: OLANZapine 10 MG TAB.RAPDIS PO SCH (21:57)
--- NOTE | 2017-03-24 11:17 | Psychiatry Progress Note ---
Date of Encounter: 03/24/17 Time of Encounter: 11:15 Subjective Interval history: Client was apparently floridly psychotic when he was first admitted. Seems to be improving. Compliant with Zyprexa. Still religiously preoccupied but pleasant. Support from mother. Client plans to live with her after discharge. Mother states he is not yet back to baseline but doing better. Not linked but new referrals being made. Review of Systems Constitutional: Denies: fever, chills, weakness, weight change Eyes: Denies: eye pain, vision change Ears, Nose, Throat: Denies: ear pain, throat pain, dental pain, hearing loss, congestion Cardiovascular: Denies: chest pain, palpitations, dyspnea on exertion Respiratory: Denies: cough, dyspnea, wheezes Gastrointestinal: Denies: abdominal pain, nausea, vomiting, diarrhea, constipation Musculoskeletal: Denies: joint swelling, joint pain Neurological: Denies: headache, weakness, numbness, memory loss Psychiatric: Reports: anxiety Objective: Exam Patient orientation: Yes Person, Yes Time, Yes Place Level of alertness: Alert Patient appearance: Unkempt Behavior: calm, cooperative Psychomotor activity: Normal Eye contact: Maintains Eye Contact Mood description: Euthymic/stable Affect description: congruent with mood, full range Speech pattern: Normal rate, Normal rhythm, Normal tone Speech volume: Normal Thought process: Tangential Thought content: No Suicidal ideation, No Homicidal ideation, Yes Overt delusions, Yes Oriental Orthodox delusion Perceptual disturbances: No Auditory hallucinations, No Visual hallucinations Judgment: Limited Insight: Minimal Results - Vital Signs Vital Signs: Temp Pulse Resp BP Pulse Ox 98.5 F 127 16 116/83 99 03/24/17 09:42 03/24/17 09:42 03/24/17 09:42 03/24/17 09:42 03/23/17 20:11 Assessment and Plan (1) Acute psychosis Current visit: Yes Status: Acute Plan: Continue hospitalization, Close observation, Suicide Precautions per unit protocol, Encourage participation in unit milieu, Group Therapy, Monitor sleep, Monitor appetite, Secure weapons Risks, benefits, side effects, alternatives discussed w/pt: Yes Patient agreeable to treatment: Yes (2) Other stimulant abuse with stimulant-induced mood disorder Current visit: Yes Status: Chronic Plan: Continue hospitalization, Close observation, Suicide Precautions per unit protocol, Encourage participation in unit milieu, Group Therapy, Monitor sleep, Monitor appetite Risks, benefits, side effects, alternatives discussed w/pt: Yes Patient agreeable to treatment: Yes Consult Discharge Plan - Plan Referrals: [facility] [Outside] - 04/04/17 9:00 am (The above appointment is with Naomy Iraheta for primary health care and medication management services. Your needs for Vivitrol will be assessed and treated as indicated as well. Please arrive 15 minutes early for your new patient appointment, and bring the following items with you: insurance card (if you do not have insurance bring proof of income to apply for the sliding fee scale), photo ID, and any medication you take in the original bottles. If you are unable to bring these items, your appointment will be rescheduled. If you are unable to keep this appointment, 24 hour business notice of cancellation is expected. If you miss your new patient appointment, you cannot be re-scheduled in this practice for 3 months. This practice does not prescribe narcotics or see [facility] benefit recipients. ) [facility] 1[facility]00 pm (The above appointment is with Jessica. When you come to your first appointment, you will be completing paperwork, meeting with a counselor, and developing a treatment plan. You will receive follow- up appointments for on-going services, which could include community support, mental health and substance abuse counseling, groups/partial hospitalization programming and medication assisted treatment. Please note, you will receive a new patient packet in the mail. Please complete that to the best of your ability and bring it with you to your first appointment. You will also need to bring the following to your first appointment as well: 1) proof of household income (two consecutive pay stubs, social security award letter, bank statement, statement letter from [facility], child support statement, IRS 1040 or W2 form, or a statement from the person who financially supports you stating they help provide for your basic needs), 2 ) proof of residency (drivers license, a piece of mail showing your address, a statement from person you live with verifying you live at their address), 3) your social security card, 4) photo ID, 5) your insurance card (if you have commercial insurance you must call to obtain a prior authorization number before you arrive to your first appointment) and 6) if you do not have insurance but have applied for Medicaid, please bring verification you have applied. The above appointment(s) reflects first availability. You may contact the office regularly to check for cancellations that may allow you to be seen sooner.)
[2017-03-24] MEDS: OLANZapine 10 MG TAB.RAPDIS PO SCH (20:58)
[2017-03-24] MEDS: traZODone 50 MG TABLET PO PRN (20:58)
--- NOTE | 2017-03-25 11:56 | Psychiatry Progress Note ---
Date of Encounter: 03/25/17 Time of Encounter: 11:52 Subjective Interval history: Looks pretty good. Thoughts are more organized. Psychosis has improved. Client has been complaint with medications. Pleasant on approach. Feels his mood is stable. Has support from mother. No longer seems to be blaming her for his hospital stay. Will plan on discharge tomorrow. Client needs to leave on a weekday so his meds can be verified through [facility]. Review of Systems Constitutional: Denies: fever, chills, weakness, weight change Eyes: Denies: eye pain, vision change Ears, Nose, Throat: Denies: ear pain, throat pain, dental pain, hearing loss, congestion Cardiovascular: Denies: chest pain, palpitations, dyspnea on exertion Respiratory: Denies: cough, dyspnea, wheezes Gastrointestinal: Denies: abdominal pain, nausea, vomiting, diarrhea, constipation Musculoskeletal: Denies: joint swelling, joint pain Neurological: Denies: headache, weakness, numbness, memory loss Psychiatric: Reports: anxiety Objective: Exam Patient orientation: Yes Person, Yes Time, Yes Place Level of alertness: Alert Patient appearance: Disheveled Behavior: calm, cooperative Psychomotor activity: Normal Eye contact: Maintains Eye Contact Mood description: Euthymic/stable Affect description: congruent with mood, full range Speech pattern: Normal rate, Normal rhythm, Normal tone Speech volume: Normal Thought process: Linear Thought content: No Suicidal ideation, No Homicidal ideation, No Overt delusions Perceptual disturbances: No Auditory hallucinations, No Visual hallucinations Judgment: Fair Insight: Minimal Results - Vital Signs Vital Signs: Temp Pulse Resp BP Pulse Ox 98.6 F 101 16 115/85 99 03/24/17 20:35 03/24/17 20:35 03/24/17 20:35 03/24/17 20:35 03/23/17 20:11 Assessment and Plan (1) Acute psychosis Current visit: Yes Status: Acute Plan: Continue hospitalization, Close observation, Suicide Precautions per unit protocol, Encourage participation in unit milieu, Group Therapy, Monitor sleep, Monitor appetite Risks, benefits, side effects, alternatives discussed w/pt: Yes Patient agreeable to treatment: Yes (2) Other stimulant abuse with stimulant-induced mood disorder Current visit: Yes Status: Chronic Plan: Continue hospitalization, Close observation, Suicide Precautions per unit protocol, Encourage participation in unit milieu, Group Therapy, Monitor sleep, Monitor appetite Risks, benefits, side effects, alternatives discussed w/pt: Yes Patient agreeable to treatment: Yes Consult Discharge Plan - Plan Referrals: [facility] [Outside] - 04/04/17 9:00 am (The above appointment is with Naomy Iraheta for primary health care and medication management services. Your needs for Vivitrol will be assessed and treated as indicated as well. Please arrive 15 minutes early for your new patient appointment, and bring the following items with you: insurance card (if you do not have insurance bring proof of income to apply for the sliding fee scale), photo ID, and any medication you take in the original bottles. If you are unable to bring these items, your appointment will be rescheduled. If you are unable to keep this appointment, 24 hour business notice of cancellation is expected. If you miss your new patient appointment, you cannot be re-scheduled in this practice for 3 months. This practice does not prescribe narcotics or see [facility] benefit recipients. ) [facility] pm (The above appointment is with Jessica. When you come to your first appointment, you will be completing paperwork, meeting with a counselor, and developing a treatment plan. You will receive follow- up appointments for on-going services, which could include community support, mental health and substance abuse counseling, groups/partial hospitalization programming and medication assisted treatment. Please note, you will receive a new patient packet in the mail. Please complete that to the best of your ability and bring it with you to your first appointment. You will also need to bring the following to your first appointment as well: 1) proof of household income (two consecutive pay stubs, social security award letter, bank statement, statement letter from [facility], child support statement, IRS 1040 or W2 form, or a statement from the person who financially supports you stating they help provide for your basic needs), 2 ) proof of residency (drivers license, a piece of mail showing your address, a statement from person you live with verifying you live at their address), 3) your social security card, 4) photo ID, 5) your insurance card (if you have commercial insurance you must call to obtain a prior authorization number before you arrive to your first appointment) and 6) if you do not have insurance but have applied for Medicaid, please bring verification you have applied. The above appointment(s) reflects first availability. You may contact the office regularly to check for cancellations that may allow you to be seen sooner.)
[2017-03-25] MEDS: OLANZapine 10 MG TAB.RAPDIS PO SCH (21:16)
--- NOTE | 2017-03-25 22:07 | Event Note ---
Date of Encounter: 03/25/17
[2017-03-26 09:47] VITALS: BP 116/77
--- NOTE | 2017-03-26 11:17 | Discharge Summary ---
Date of Encounter: 03/26/17 Time of Encounter: 11:14 Diagnosis - Discharge Diagnosis (1) Acute psychosis Status: Acute (2) Other stimulant abuse with stimulant-induced mood disorder Status: Chronic Medications - Discharge Medications Prescriptions: OLANZapine [Zyprexa Zydis] 10 mg PO HS #30 tab.rapdis OLANZapine [Zyprexa Zydis] 10 mg PO HS #30 tab.rapdis 03/26/17 [Rx] 3 Allergy/AdvReac Type Severity Reaction Status Date / Time No Known Allergies Allergy Verified 03/15/17 08:25 Provider Date of admission: 03/15/17 16:36 Primary care physician: PCP NONE Discharging clinician: Surekha Ryan Assessment and Plan - Patient/Caregiver Discharge Instructions Activity: resume usual activities as tolerated Diet: regular diet - Follow up Plan Follow up with: [facility] [Outside] - 04/04/17 9:00 am (The above appointment is with Naomy Iraheta for primary health care and medication management services. Your needs for Vivitrol will be assessed and treated as indicated as well. Please arrive 15 minutes early for your new patient appointment, and bring the following items with you: insurance card (if you do not have insurance bring proof of income to apply for the sliding fee scale), photo ID, and any medication you take in the original bottles. If you are unable to bring these items, your appointment will be rescheduled. If you are unable to keep this appointment, 24 hour business notice of cancellation is expected. If you miss your new patient appointment, you cannot be re-scheduled in this practice for 3 months. This practice does not prescribe narcotics or see [facility] benefit recipients. ) [facility] 1:00 pm (The above appointment is with Jessica. When you come to your first appointment, you will be completing paperwork, meeting with a counselor, and developing a treatment plan. You will receive follow- up appointments for on-going services, which could include community support, mental health and substance abuse counseling, groups/partial hospitalization programming and medication assisted treatment. Please note, you will receive a new patient packet in the mail. Please complete that to the best of your ability and bring it with you to your first appointment. You will also need to bring the following to your first appointment as well: 1) proof of household income (two consecutive pay stubs, social security award letter, bank statement, statement letter from [facility], child support statement, IRS 1040 or W2 form, or a statement from the person who financially supports you stating they help provide for your basic needs), 2 ) proof of residency (drivers license, a piece of mail showing your address, a statement from person you live with verifying you live at their address), 3) your social security card, 4) photo ID, 5) your insurance card (if you have commercial insurance you must call to obtain a prior authorization number before you arrive to your first appointment) and 6) if you do not have insurance but have applied for Medicaid, please bring verification you have applied. The above appointment(s) reflects first availability. You may contact the office regularly to check for cancellations that may allow you to be seen sooner.) Functional capacity at discharge: independent ambulation Overall status at discharge: Stable Disposition: Home, Self-Care Hospital Course Hospital course: Mr. Adan is a 36 year old male who was admitted in a psychotic state. 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 Stabilized on Zyprexa. Currently he is calm, pleasant, and polite. Eating and sleeping well. Mood has been stable. Has a historical diagnosis of Schizophrenia but also uses mind altering drugs. Thoughts are currently organized on Zyprexa. Client states he is comfortable taking this medication. Client denies SI/HI/AH/VH. Has support from mother. Will be seeing PCP next week and has an intake for mental health services next week as well. - Time Spent with Patient Total time spent providing and/or coordinating discharge services: Quality - Multiple Antipsychotics Patient discharged on 2 or more antipsychotic medications: No Procedures - Procedures Procedures: Medication Management, Crisis Stabilization, Supportive Therapy, Group Therapy Mental Status Exam - Mental Status Exam Patient orientation: Yes Person, Yes Time, Yes Place Level of alertness: Alert Patient appearance: Appropriate Behavior: calm, cooperative Psychomotor activity: Normal Eye contact: Maintains Eye Contact Mood description: Euthymic/stable Affect description: congruent with mood, full range Speech pattern: Normal rate, Normal rhythm, Normal tone Speech Volume: Normal Thought process: Linear, Goal Oriented Thought Content: No Suicidal ideation, No Homicidal ideation, No Overt delusions Perceptual Disturbances: No Auditory hallucinations, No Visual hallucinations Judgment: Fair Insight: Partial
== END 2017-03-26 13:20 | disposition home or self-care (01) | DRG 751 ==
LOC: EMEROO 08:17 → 1ANU 16:36 → SUATTDRO 16:36 → 1ANU 17:00
PROVIDERS: ADMIT Psychiatry & Neurology Psychiatry; ATTEND Psychiatry & Neurology Forensic Psychiatry